=== PATIENT | male | born 2000 | race Caucasian/White ===

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

== ENCOUNTER 2020-05-04 03:04 | Emergency (ER) | payer SELFPAY ==
[2020-05-04] MEDS ORDERED: predniSONE 20 MG TAB PO ONE (03:16)
[2020-05-04] MEDS ORDERED: IBUPROFEN 200 MG TAB PO ONE (03:16)
[2020-05-04] MEDS ORDERED: AMOXICILLIN & POT CLAVULANATE 875 MG TAB PO ONE (03:16)
--- NOTE | 2020-05-04 03:19 | ED.PDOC ---
History of Present Illness - General Time Seen by Provider: 05/04/20 03:10 Source: patient Exam Limitations: no limitations - History of Present Illness Initial Comments: The patient is a 19-year-old male presented emergency room secondary to posterior oropharyngeal and primarily right tonsillar pain. The patient has had a flare of this about 3 weeks ago and had gotten better around 10 days ago without antibiotics. However about 3 days ago it started back again. He reports increased pressure in his ears. No definite fevers. No nausea vomiting or diarrhea. No abdominal pain. Mild headache. Minimal runny nose. Timing/Duration: other Severity: moderate Improving Factors: nothing Worsening Factors: nothing Associated Symptoms: headaches, malaise Allergies/Adverse Reactions: Allergies NO KNOWN ALLERGY Allergy (Verified 10/05/14 20:22) Home Medications: Ambulatory Orders Sulfa/Trimeth 800/160 (Ds) Tab [Bactrim DS Tab] 1 ea PO BID #14 tab 10/23/16 Ondansetron Tab [Zofran Tab] 4 mg PO TID PRN #30 tab 11/25/17 Ranitidine HCl 300 mg PO BEDTIME #90 tab 11/25/17 Sucralfate Tab [Carafate Tab] 1 gm PO ACHS #60 tablet 11/25/17 Amoxicillin & Pot Clavulanate [Augmentin Tab] 875 mg PO BID #20 tab 05/04/20 Review of Systems - Review of Systems Constitutional: States: malaise EENTM: States: throat pain Respiratory: States: no symptoms reported Cardiology: States: no symptoms reported Gastrointestinal/Abdominal: States: no symptoms reported Genitourinary: States: no symptoms reported Musculoskeletal: States: no symptoms reported Skin: States: no symptoms reported Neurological: States: headache Endocrine: States: no symptoms reported All other Systems: No Change from Baseline Past Medical History (General) - Patient Medical History Hx Seizures: No Hx Stroke: No Hx Dementia: No Hx Asthma: No Hx of COPD: No Hx Cardiac Disorders: No Hx Congestive Heart Failure: No Hx Pacemaker: No Hx Hypertension: No Hx Thyroid Disease: No Hx Diabetes: No Hx Gastroesophageal Reflux: No Hx Renal Disease: No Hx Cancer: No Hx of HIV: No Hx Hepatitis C: No Hx MRSA: No - Vaccination History Hx Influenza Vaccination: No - Social History Hx Tobacco Use: Yes Hx Chewing Tobacco Use: No Hx Alcohol Use: Yes Hx Substance Use: No Hx Substance Use Treatment: No Hx Depression: No Hx Physical Abuse: No Hx Emotional Abuse: No Hx Suspected Abuse: No - Female History Patient : No Family Medical History - Family History Father Family History: Unknown Living Status: Still Living Hx Family Hypertension: Yes Physical Exam - Physical Exam General Appearance: Alert, Comfortable, No apparent distress Eye Exam: bilateral normal Ears, Nose, Throat: hearing grossly normal, pharyngeal erythema, tonsillar swelling - Right slightly more than left Neck: full range of motion, supple Respiratory: lungs clear, normal breath sounds, no respiratory distress, no accessory muscle use Cardiovascular/Chest: normal peripheral pulses, regular rate, rhythm, no edema Peripheral Pulses: radial,right: 2+, radial,left: 2+ Gastrointestinal/Abdominal: non tender, soft Rectal Exam: deferred Back Exam: no CVA tenderness, no vertebral tenderness Extremity: normal range of motion, normal capillary refill 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 Being that this is the second episode in less than a month, the patient is going to be empirically treated with Augmentin for approximately 10 days. He did receive 1 dose of oral prednisone here to reduce inflammation. He should take 2 Aleve twice daily for the next week or so with food to reduce discomfort and swelling as well. He needs to keep himself well-hydrated. He needs to follow back up with his primary care doctor in 2 weeks for repeat evaluation. ER Warnings given. harlan delcid [id number] Departure - Departure Clinical Impression: Acute tonsillitis Qualifiers: Pharyngitis/tonsillitis etiology: unspecified etiology Qualified Code(s): J03.90 - Acute tonsillitis, unspecified Disposition: Discharge to Home or Self Care Condition: Fair Diet: regular diet Activity: increase activity as tolerated Prescriptions: Amoxicillin & Pot Clavulanate [Augmentin Tab] 875 mg PO BID #20 tab Home Medications: Ambulatory Orders Sulfa/Trimeth 800/160 (Ds) Tab [Bactrim DS Tab] 1 ea PO BID #14 tab 10/23/16 Ondansetron Tab [Zofran Tab] 4 mg PO TID PRN #30 tab 11/25/17 Ranitidine HCl 300 mg PO BEDTIME #90 tab 11/25/17 Sucralfate Tab [Carafate Tab] 1 gm PO ACHS #60 tablet 11/25/17 Amoxicillin & Pot Clavulanate [Augmentin Tab] 875 mg PO BID #20 tab 05/04/20 Additional Instructions: The patient is a 19-year-old male presenting with pharyngitis and tonsillitis primarily lateralizing to the right. Being that this is the second episode in less than a month, the patient is going to be empirically treated with Augmentin for approximately 10 days. He did receive 1 dose of oral prednisone here to reduce inflammation. He should take 2 Aleve twice daily for the next week or so with food to reduce discomfort and swelling as well. He needs to keep himself well-hydrated. He needs to follow back up with his primary care doctor in 2 weeks for repeat evaluation. ER Warnings given.
[2020-05-04 04:25] VITALS: BP 124/81; TEMP 98.5; O2SAT 98
== END 2020-05-04 03:30 | disposition home or self-care (01) ==
LOC: ER 03:04
DX: J03.90 Acute tonsillitis, unspecified (principal); Z87.891 Personal history of nicotine dependence